=== PATIENT | male | born 1985 | race Caucasian/White ===

== ENCOUNTER 2022-09-10 14:06 | Emergency (ER) | payer BC ==
[~2022-09-10] VITALS: Ht 182.9 cm; Wt 79.4 kg
--- NOTE | 2022-09-10 14:10 | NUR ---
RECEIVED PT 37 YRS FROM HOME WALKING IN C/O NUMBNESS AND PAIN ON RT ARM AND SHOULDER DINESES HX TRUMA
--- NOTE | 2022-09-10 15:20 | NUR ---
SEEN BY DR. WHIT ARAGON
--- NOTE | 2022-09-10 15:40 | NUR ---
VS SABLE PAIN CONTLOLED NO WEEKNESS
[2022-09-10] MEDS ORDERED: METH4TAB17 PO (15:41)
--- NOTE | 2022-09-10 16:12 | NUR ---
Patient discharged to home in stable condition. Written and verbal after care instructions given. Patient verbalizes understanding of instruction.
[2022-09-10 16:22] VITALS: BP 126/85
== END 2022-09-10 16:23 | disposition home or self-care (01) ==
LOC: ER 14:30
DX: R20.2 Paresthesia of skin (principal); Z79.899 Other long term (current) drug therapy